=== PATIENT | male | born 1955 | race Caucasian/White ===

== ENCOUNTER 2016-04-19 05:24 | Day surgery (SDC) | payer BC ==
[2016-04-10 11:19] LABS: BASOPHILS 0.9 %; BASOPHILS ABSOLUTE 0.04 10/3/uL (0.0-0.16); EOSINOPHILS 3.5 %; EOSINOPHILS ABSOLUTE 0.15 10/3/uL (0.0-0.53); IMMATURE GRANULOCYTES 0.5 %; IMMATURE GRANULOCYTES ABSOLUTE 0.02 10/3/uL (0.0-0.11); LYMPHOCYTES 19.2 %; LYMPHOCYTES ABSOLUTE 0.82 10/3/uL (0.67-4.30); MEAN CORPUS HGB CONC 34.1 g/dL (32.0-36.0); MEAN CORPUSCULAR VOLUME 93.8 fL (80-100); MEAN PLATELET VOLUME 10.7 fL (9.2-13.0); MONOCYTES 9.6 %; MONOCYTES ABSOLUTE 0.41 10/3/uL (0.21-1.20); NEUTROPHILS 66.3 %; NEUTROPHILS ABSOLUTE 2.84 10/3/uL (2.02-8.40); PLATELET COUNT 207 10/3/uL (150-400); RBC DISTRIBUTION WIDTH 12.3 % (12.0-16.0); RED CELL COUNT 4.37 10/6/uL (4.7-6.1); WHITE BLOOD CELLS 4.3 10/3/uL (4.5-10.5)
[2016-04-10 11:20] LABS: MANUAL DIFF NO %
[2016-04-10 11:35] LABS: A/G RATIO 1.1 (0.7-1.9); ALBUMIN 3.5 G/DL (3.5-5.0); ALKALINE PHOSPHATASE 82 U/L (45-117); BUN (BLOOD UREA NITROGEN) 10 MG/DL (6-23); CALCIUM, SERUM 8.2 MG/DL (8.5-10.4); CHLORIDE, SERUM 101 MMOL/L (96-112); CO2 (CARBON DIOXIDE) 31 MMOL/L (24-34); CREATININE 0.98 MG/DL (0.70-1.30); GFR AFRICAN AMERICAN 96 ML/MIN (>=60); GFR NON AFRICAN AMERICAN 83 ML/MIN (>=60); GLOBULIN 3.1 G/DL (2.5-4.1); GLUCOSE, SERUM 88 MG/DL (60-99); POTASSIUM, SERUM 3.8 MMOL/L (3.5-5.3); SGOT(AST) 15 U/L (5-40); SGPT(ALT) 25 U/L (5-65); SODIUM, SERUM 138 MMOL/L (135-148); TOTAL BILIRUBIN 0.5 MG/DL (0-1.2); TOTAL PROTEIN 6.6 G/DL (6.0-8.5)
--- NOTE | ~2016-04-19 | OP ---
Record Of Operation [facility] [address] [place]. [address] NAME: DREAD JACOME JR : 53 STATUS : REG [facility]#: [id number] AGE: 60 ADM/REG DATE : 04/19/16 MR#: [id number] REPORT SERV DATE: 04/19/16 DICTATED BY: FLORINA BARAJAS III DATE: 04/19/16 REPORT STATUS : Draft TRANSCRIBED BY: MODL DATE: 04/19/16 DATE OF PROCEDURE: 04/19/2016 PREOPERATIVE DIAGNOSIS: Symptomatic bilateral inguinal hernia. POSTOPERATIVE DIAGNOSIS: Symptomatic bilateral inguinal hernia, direct bilateral inguinal hernias. PROCEDURE: Open bilateral inguinal hernia repair with Tere technique with Prolene mesh. SURGEON: Florina Barajas M.D. ANESTHESIA: General with intubation. COMPLICATIONS: None. ESTIMATED BLOOD LOSS: Less than 5 mL. SPECIMENS: None. DRAINS: None. LAP AND SPONGE COUNT: Correct x3. BRIEF HISTORY: This 60-year-old male presented with symptomatic bilateral inguinal hernias. It was felt that open bilateral inguinal hernia repair was indicated. This procedure, the risks, benefits, and alternatives, including not limited to the risk for bleeding, infection, pain, swelling, scarring, deformity to either or both areas, seroma formation, hematoma formation, recurrence of either or both hernias, nerve injury, chronic paresthesia or pain, numbness, neuralgia or neuroma in the thigh, scrotum or groin on either or both sides, chronic neuralgia or neuroma, recurrence of either or both hernias, and unforeseen complications including deep venous thrombosis, pulmonary embolus, myocardial infarction, stroke, pneumonia, and , were fully explained to the patient and the family prior to surgery. The expected length of recovery was explained. The patient had questions, which were answered. He fully understood the risks and agreed to the surgery as planned. PROCEDURE IN DETAIL: After being properly identified and after discussing the risks of surgery with the patient again in the preoperative area, he was taken to the operating room and placed in the supine position on the operating room table. General anesthesia was administered. He was intubated without difficulty. The abdomen and groins were prepped and draped sterilely in the usual fashion. After an appropriate "time-out" per JCAHO standards, a small oblique incision was made in the left groin from the pubic tubercle medially towards the anterior superior iliac spine laterally. The incision was continued through the subcutaneous tissue. Hemostasis was controlled with cautery. The external oblique fascia was identified. This fascia was opened along the direction of its fibers, so as to open the Record Of Operation [facility] [address] [place]. [address] NAME: DREAD JACOME JR : 53 STATUS : REG [facility] PAT#: [id number] AGE: 60 ADM/REG DATE : 04/19/16 MR#: [id number] REPORT SERV DATE: 04/19/16 DICTATED BY: FLORINA BARAJAS III DATE: 04/19/16 REPORT STATUS : Draft TRANSCRIBED BY: TEGAN DATE: 04/19/16 external inguinal ring. Using sharp dissection, the underlying ilioinguinal and genitofemoral nerves were identified. These were carefully isolated and protected. Using sharp dissection, the spermatic cord and its contents were mobilized from the floor of the canal. A [place] drain placed beneath it. There was noted to be a direct hernia protruding through the floor of the canal. The spermatic cord was skeletonized and it was noted that there was no indirect component to the hernia. Using sharp dissection, the hernia was dissected from the surrounding tissues and reduced back into the abdominal cavity. The fascial defect was fairly small, about 1 cm in size. This fascial defect was closed with interrupted 2-0 silk sutures which were placed between shelving edge of the inguinal ligament laterally, and the internal oblique and transversalis fascia medially. This resulted in good closure of the defect with no tension. A Prolene mesh was then selected and cut to the appropriate size for the floor of the canal. A slit was made in the mesh laterally to incorporate spermatic cord. The mesh was then secured to the floor of the canal with a running 2-0 Prolene suture which was placed between the edge of the mesh and shelving edge of the inguinal ligament laterally and the edge of the mesh and internal oblique and transversalis fascia medially. The mesh was secured lateral to the cord as well. Upon completion of this, the mesh lay nicely on the floor of the canal, was not twisted or kinked in any way. It was not under any tension. A small finger could be placed through the internal ring so that the spermatic vessels had not been unduly tightened or narrowed. Hemostasis was assured. The external oblique fascia was closed with running 2-0 silk suture to the subcutaneous tissue. It was closed with a running 3-0 chromic suture and the skin was closed with running subcuticular 4-0 Monocryl stitch. The incision was injected with 0.5% Marcaine. We then turned our attention to the opposite groin. A similar mirror image incision was made in the groin. The dissection was continued in the same fashion. We again identified a direct hernia with no indirect component to the hernia. This was repaired and reduced exactly as on the opposite side. Mesh was also used for this repair. Upon completion of this, the mesh lay nicely on the floor of the canal, was not twisted or kinked in any way. A small finger could be placed through the internal ring so the spermatic vessels had not been unduly tightened or narrowed. Hemostasis was assured. The incision was closed in layers exactly as on the opposite side. Anesthesia was reversed. The patient was taken to the recovery room in stable condition. He tolerated the procedure well. His family was informed of the results of surgery. The patient was discharged stable and comfortable, able to void and ambulate. His family was advised that he should keep his wounds clean and dry for [address] hours. He should not drive for three to four days after surgery or while using narcotics, that he should not perform any lifting for five to six weeks, and that he should resume his usual medications. He has been asked to return in two weeks for followup or sooner if any fever, chills, wound drainage, or other problems prior to that time. He was given a prescription for Percocet 7.5 one t.i.d., #15 as needed for pain, which he was advised not to use while driving. ASUNCION/KENDRAL Florina Record Of Operation [facility] [address] [address] NAME: DREAD JACOME : 53 STATUS : REG [facility]#: [id number] AGE: 60 ADM/REG DATE : 04/19/16 MR#: [id number] REPORT SERV DATE: 04/19/16 DICTATED BY: FLORINA BARAJAS III DATE: 04/19/16 REPORT STATUS : Draft TRANSCRIBED BY: MODL DATE: 04/19/16 Tyrone Barajas III, M.D. / [id number] CC: Gregg Pittman III, M.D.
--- NOTE | ~2016-04-19 | PREOPHP ---
PreOp History and Physical [address] [place]. [address] NAME: DREAD JACOME JR : 53 STATUS : PRE [facility] PAT#: [id number] AGE: 60 ADM/REG DATE : MR#: [id number] REPORT SERV DATE: 04/17/16 DICTATED BY: FLORINA STEVENS III DATE: 04/01/16 REPORT STATUS : Draft TRANSCRIBED BY: MODL DATE: 04/01/16 HISTORY OF PRESENT ILLNESS: This 60-year-old male comes to the operating room for open bilateral inguinal hernia repair. The patient has bilateral inguinal hernias. The right is larger than the left. This hernia has been associated with local pain and discomfort. The patient has had no nausea, vomiting, or obstructive symptoms. He comes to the operating room now for open bilateral inguinal hernia repair. PAST MEDICAL HISTORY: 1. Hypertension. 2. Hyperlipidemia. 3. Sleep apnea. 4. History of tonsillar cancer, status post chemotherapy and radiation therapy. 5. Gastroesophageal reflux disease. MEDICATIONS: Aspirin, carvedilol, omeprazole, zinc, Mari, Flonase. ALLERGIES: CODEINE. PAST SURGICAL HISTORY: Includes neck dissection in 2013. FAMILY HISTORY: Positive for hypertension. SOCIAL HISTORY: The patient is . He is retired. He has no history of tobacco use. He has occasional history of alcohol use. REVIEW OF SYSTEMS: The patient complains of easy bruising. His 14-point review of systems is otherwise unremarkable. PHYSICAL EXAMINATION: GENERAL: This is a male, in no acute distress. He is alert and oriented x3. VITAL SIGNS: Blood pressure 121/77, pulse 66, temperature 97.5. HEENT: Unremarkable. Cranial nerves II through XII were normal. LUNGS: Clear. CARDIAC: Normal. ABDOMEN: Soft and nontender. The right groin has a moderate size inguinal hernia. This is reducible. In the left groin, there is a small hernia which is also reducible. EXTREMITIES: Normal. ASSESSMENT: 1. A 60-year-old male with symptomatic bilateral inguinal hernias. 2. Hypertension. 3. Hyperlipidemia. 4. Sleep apnea. 5. History of tonsillar cancer, in remission after chemotherapy and radiation therapy. PLAN: The patient comes to the operating room now for open bilateral inguinal hernia repair. PreOp History and Physical [address] [place]. [address] NAME: DREAD JACOME JR : 53 STATUS : PRE [facility] PAT#: [id number] AGE: 60 ADM/REG DATE : MR#: [id number] REPORT SERV DATE: 04/17/16 DICTATED BY: FLORINA STEVENS III DATE: 04/01/16 REPORT STATUS : Draft TRANSCRIBED BY: MODL DATE: 04/01/16 This procedure, the risks, benefits, and alternatives, including not limited to the risk for bleeding, infection, pain, swelling, scarring, deformity to either both areas, seroma formation, hematoma formation, recurrence of either or both hernias, nerve injury, chronic paresthesia or pain in the thigh, scrotum, or groin, on either or both sides, chronic neuralgia or neuroma, and unforeseen complications including deep venous thrombosis, pulmonary embolus, myocardial infarction, stroke, pneumonia, and , have been explained to the patient prior to surgery. His questions were answered. He understands the risks and agrees to surgery as planned. ASUNCION/TEGAN Florina Stevens III, M.D. / [id number]
[~2016-04-19 05:24] MED LIST: ADVIL PO; ALLEGRA180 PO; ASAB PO; ATV1 PO; COREG25 PO; DEPO-TESTOS100 MG/ML IM; DEPO-TESTOS200 MG/M1 IM; FISH OIL1200 MG PO; FLAXSEED OIL1000 MG PO; FLONASE NAS; LEVAQUIN750 MG PO; NASAL DECONGESTANT; NORCO1 TA1 PO; ORAZINC110 MG PO; PR25 PO; PRILO PO; PRILOSEC40 MG PO; RED YEAS1 PO; VITE PO; ZINC; ZOFRAN4 PO
== END 2016-04-19 16:23 | disposition home or self-care (01) ==
LOC: SDC 05:24
PROVIDERS: Surgery
PROC: 0YUA0JZ Supplement Bilateral Inguinal Region with Synthetic Substitute, Open Approach (ICD-10-PCS; principal; 2016-04-19 06:45)
DX: K40.20 Bilateral inguinal hernia, without obstruction or gangrene, not specified as recurrent (principal); I10 Essential (primary) hypertension; E78.5 Hyperlipidemia, unspecified; K21.9 Gastro-esophageal reflux disease without esophagitis; G47.33 Obstructive sleep apnea (adult) (pediatric); Z82.49 Family history of ischemic heart disease and other diseases of the circulatory system; Z98.890 Other specified postprocedural states; Z88.5 Allergy status to narcotic agent; Z88.6 Allergy status to analgesic agent; Z79.82 Long term (current) use of aspirin; Z92.21 Personal history of antineoplastic chemotherapy; Z92.3 Personal history of irradiation; Z85.818 Personal history of malignant neoplasm of other sites of lip, oral cavity, and pharynx
CPT/HCPCS: 71020; 80053; 85025; 93005; A9270-GY; C1781; J0690; J1885; J2250; J2405; J2710; J3010